=== PATIENT | male | born 1990 | race Caucasian/White ===

== ENCOUNTER 2018-09-19 13:00 | Emergency (ER) | payer OTHER ==
[~2018-09-19 13:00] MED LIST: CLIN300C99 PO; NAPR220C12 PO; TRUPT PO
--- NOTE | 2018-09-19 13:06 | ER Report ---
History and Physical Time Seen By MD: 13:06 HPI/ROS CHIEF COMPLAINT: Possible abscess HISTORY OF PRESENT ILLNESS: This is a 28-year-old male who presents to the emergency department for an abscess. Patient was seen and evaluated at urgent care, with a tried to I&D an abscessed area around the left inner gluteal fold near the perineum. No purulent drainage was removed from the I&D. Sent to the ER for concerns of fevers and chills, as well as the size of the induration and abscessed area. The patient states on Thursday he began to have some tenderness to the area, didn't sleep very well, had aches and chills and fevers at home. Has taken ibuprofen and Tylenol to help with the aches and chills in the discomfort. Patient states this happened a number of years ago in the same area, presentation was very similar, ultimately there was a large ingrown hair that they removed. No nausea or vomiting. No headaches. No chest pain or shortness of breath. REVIEW OF SYSTEMS: Constitutional: As above. Eyes: No discharge. ENT: No sore throat. Cardiovascular: No chest pain, no palpitations. Respiratory: No cough, no shortness of breath. Gastrointestinal: No abdominal pain, no vomiting. Genitourinary: No hematuria. Musculoskeletal: No back pain. Skin: As above. Neurological: No headache. Allergies: Coded Allergies: No Known Allergies (Verified Allergy, Unknown, 09/19/18) Home Meds Active Scripts Hydrocodone Bit/Acetaminophen (NORCO 5-325 TABLET) 1 Each Tablet, 1 EACH PO Q4- 6H PRN for PAIN, #12 TAB Prov:YARIEL ROBINS- 09/19/18 Sulfamethoxazole/Trimet 800-160 Mg Tab (BACTRIM DS TABLET) 1 Each Tablet, 1 TAB PO Q12H, #20 TAB 0 Refills Prov:YARIEL ROBINS-BC 09/19/18 Discontinued Reported Medications Naproxen Sodium (ALEVE) 220 Mg Capsule, 2 TAB PO BID PRN for PAIN, CAPSULE 01/17/15 Emtricitabine/Tenofovir (TRUVADA 200 MG-300 MG TABLET) 1 Each Tablet, 1 TAB PO QDAY 01/17/15 Discontinued Scripts Clindamycin Hcl (CLINDAMYCIN HCL) 300 Mg Capsule, 1 CAP PO Q6H, #40 CAPSULE 0 Re fills TAKE 1 CAPSULE EVERY SIX HOURS Prov:ASHOK LIN MD 01/17/15 Past Medical/Surgical History Patient has a past medical and surgical history of abscess to the perineum. Reviewed Nurses Notes: Yes Smoking Status: Never Smoker Constitutional Vital Sign - Last 24 Hours 09/19/18 09/19/18 09/19/18 09/19/18 13:00 13:04 13:05 14:00 Temp 101.4 Pulse 128 128 102 Resp 18 B/P (MAP) 141/95 141/95 (110) Pulse Ox 94 94 O2 Delivery Room Air 09/19/18 09/19/18 14:05 14:44 Temp 100.6 Pulse 99 B/P (MAP) 129/85 (100) 133/85 (101) Pulse Ox 92 Physical Exam General Appearance: The patient is alert, has no immediate need for airway protection and no signs of toxicity. Eyes: Pupils equal and round no pallor or injection. ENT, Mouth: Mucous membranes are moist. Respiratory: There are no retractions, lungs are clear to auscultation. Cardiovascular: Regular rate and rhythm. Gastrointestinal: Abdomen is soft and non tender, no masses, bowel sounds normal. Neurological: Alert and oriented 4. Moving all extremities. Following all commands. No focal neuro deficits. Skin: Erythema, induration and pain elicited with light palpation to the left medial gluteal fold in the perineum. Musculoskeletal: Neck is supple non tender. Extremities are nontender, nonswollen and have full range of motion. DIFFERENTIAL DIAGNOSIS: After history and physical exam differential diagnosis was considered for abscess. Medical Decision Making Data Points Result Diagram: 09/19/189 09/19/18 1339 Laboratory Hematology Test 09/19/18 13:39 Red Blood Count 5.33 M/uL (4.00-5.60) Mean Corpuscular Volume 88.2 fL (80.0-96.0) Mean Corpuscular Hemoglobin 29.6 pg (26.0-33.0) Mean Corpuscular Hemoglobin Concent 33.6 g/dL (32.0-36.0) Red Cell Distribution Width 14.0 % (11.5-14.5) Mean Platelet Volume 8.4 fL (7.2-11.1) Neutrophils (%) (Auto) 81.2 % (39.4-72.5) Lymphocytes (%) (Auto) 8.4 % (17.6-49.6) Monocytes (%) (Auto) 9.6 % (4.1-12.4) Eosinophils (%) (Auto) 0.1 % (0.4-6.7) Basophils (%) (Auto) 0.7 % (0.3-1.4) Nucleated RBC Relative Count (auto) 0.0 /100WBC Neutrophils # (Auto) 13.5 K/uL (2.0-7.4) Lymphocytes # (Auto) 1.4 K/uL (1.3-3.6) Monocytes # (Auto) 1.6 K/uL (0.3-1.0) Eosinophils # (Auto) 0.0 K/uL (0.0-0.5) Basophils # (Auto) 0.1 K/uL (0.0-0.1) Nucleated RBC Absolute Count (auto) 0.00 K/uL Sodium Level 139 mmol/L (137-145) Potassium Level 4.2 mmol/L (3.5-5.0) Chloride Level 106 mmol/L (98-107) Carbon Dioxide Level 21 mmol/L (22-30) Blood Urea Nitrogen 12 mg/dl (9-21) Creatinine 0.90 mg/dl (0.66-1.25) Glomerular Filtration Rate Calc > 60.0 Random Glucose 107 mg/dl (75-110) Calcium Level 9.5 mg/dl (8.4-10.2) Total Bilirubin 0.9 mg/dl (0.2-1.3) Aspartate Amino Transf (AST/SGOT) 19 U/L (0-35) Alanine Aminotransferase (ALT/SGPT) 53 U/L (0-56) Alkaline Phosphatase 68 U/L (0-126) Total Protein 8.0 g/dl (6.3-8.2) Albumin 4.4 g/dl (3.5-5.0) Chemistry Test 09/19/18 13:39 White Blood Count 16.6 k/uL (4.5-11.0) Red Blood Count 5.33 M/uL (4.00-5.60) Hemoglobin 15.8 g/dL (14.0-18.0) Hematocrit 47.0 % (42.0-52.0) Mean Corpuscular Volume 88.2 fL (80.0-96.0) Mean Corpuscular Hemoglobin 29.6 pg (26.0-33.0) Mean Corpuscular Hemoglobin Concent 33.6 g/dL (32.0-36.0) Red Cell Distribution Width 14.0 % (11.5-14.5) Platelet Count 321 K/uL (150-450) Mean Platelet Volume 8.4 fL (7.2-11.1) Neutrophils (%) (Auto) 81.2 % (39.4-72.5) Lymphocytes (%) (Auto) 8.4 % (17.6-49.6) Monocytes (%) (Auto) 9.6 % (4.1-12.4) Eosinophils (%) (Auto) 0.1 % (0.4-6.7) Basophils (%) (Auto) 0.7 % (0.3-1.4) Nucleated RBC Relative Count (auto) 0.0 /100WBC Neutrophils # (Auto) 13.5 K/uL (2.0-7.4) Lymphocytes # (Auto) 1.4 K/uL (1.3-3.6) Monocytes # (Auto) 1.6 K/uL (0.3-1.0) Eosinophils # (Auto) 0.0 K/uL (0.0-0.5) Basophils # (Auto) 0.1 K/uL (0.0-0.1) Nucleated RBC Absolute Count (auto) 0.00 K/uL Glomerular Filtration Rate Calc > 60.0 Calcium Level 9.5 mg/dl (8.4-10.2) Total Bilirubin 0.9 mg/dl (0.2-1.3) Aspartate Amino Transf (AST/SGOT) 19 U/L (0-35) Alanine Aminotransferase (ALT/SGPT) 53 U/L (0-56) Alkaline Phosphatase 68 U/L (0-126) Total Protein 8.0 g/dl (6.3-8.2) Albumin 4.4 g/dl (3.5-5.0) ED Course/Re-evaluation Clinical Indication for ER IV: Hydration, IV Access ED Course The patient was admitted to room. History and physical were obtained. Differential diagnoses were considered. An IV was started. CBC, CMP, 1 L normal saline bolus was given. CBC showing white count of 16.6. Blood culture was obtained. A specimen culture was collected and sent to the lab. The patient's name was I&D does not of below. Did get a very large amount of purulent Drainage from the wound, did breakup the loculations. Did have a very foul odor to it. The wound was packed as noted below. The patient was started on Bactrim. Patient also received 5 mg IM Rocephin at urgent care, I also gave the patient 1 g of IV Rocephin. The patient tolerated well. I did instruct the patient to return tomorrow for reevaluation. Patient expressed understanding and was discharged home. The patient was also given a prescription for hydrocodone. Instructed to apply a warm compress to the area, keep the wound clean and dry until he follows up tomorrow. Patient expressed understanding. He was discharged home. Procedure: Abscess drainage. The patient's abscess was located on the left medial gluteal fold near the perineum.. I obtained verbal consent from the patient to drain the abscess who was informed about the possibility of bleeding and pain. The abscess was incised with a scalpel and a large amount of purulent drainage was expressed. I irrigated the wound and placed some packing. The patient tolerated the procedure well. The procedure was performed by myself. Decision to Disposition Date: Sep 19, 2018 Decision to Disposition Time: 14:35 Depart Departure Latest Vital Signs Vital Signs Date Time Temp Pulse Resp B/P (MAP) Pulse Ox O2 Delivery O2 Flow Rate FiO2 09/19/18 14:44 100.6 99 133/85 (101) 92 09/19/18 13:04 18 Room Air Impression: Primary Impression: Perineal abscess Condition: Improved Disposition: HOME OR SELF-CARE New Scripts Hydrocodone Bit/Acetaminophen (NORCO 5-325 TABLET) 1 Each Tablet 1 EACH PO Q4-6H PRN for PAIN, #12 TAB Prov: YARIEL ROBINS- 09/19/18 Sulfamethoxazole/Trimet 800-160 Mg Tab (BACTRIM DS TABLET) 1 Each Tablet 1 TAB PO Q12H, #20 TAB 0 Refills Prov: YARIEL ROBINS 09/19/18 Patient Instructions: Abscess (ED), Abscess Incision and Drainage (DC) Additional Instructions: We were able to drain a substantial amount of pus from the abscess. Keep the area as clean and dry as possible until you return to the ED. Please return tomorrow afternoon for reevaluation, we may remove the drain and replace with another. Take the antibiotics as prescribed. Take 600-800mg Ibuprofen every 6-8 hours as needed. Take 500-1000mg Tylenol as needed, do not take Tylenol with [place]. Take [place] as directed for severe pain. Apply heat to the affected area. Drink plenty of water, Get plenty of rest. Return to the ED for any other concerns or worsening symptoms. YARIEL ROBINS [employer]ER-BC Sep 19, 2018 13:06
[2018-09-19] MEDS ORDERED: NS(*) 0.9% 1000 ML BAG 1,000 ML IV ONE (13:30)
[2018-09-19] MEDS ORDERED: KETOROLAC 30 MG/ML VIAL IVP ONE (13:30)
[2018-09-19] MEDS ORDERED: cefTRIAXone 1 GM VIAL IVP ONE (13:30)
[2018-09-19 13:50] LABS: PLATELET COUNT, AUTOMATED 321 K/uL (150-450)
[2018-09-19] MEDS ORDERED: SULF-198 PO (14:09)
[2018-09-19] MEDS ORDERED: HYDR-653 PO (14:09)
[2018-09-19 14:44] VITALS: BP 133/85
== END 2018-09-19 14:52 | disposition home or self-care (01) ==
LOC: ER 13:03
DX: L02.215 Cutaneous abscess of perineum (principal)
CPT/HCPCS: 10061; 85025; 87040; 87070; 96374; 96375; 99284; J0696; J1885; J7030; 82040; 82247; 82310; 82374; 82435; 82565; 82947; 84075; 84132; 84155; 84295; 84450; 84460; 84520; 87077; 87186

== ENCOUNTER 2018-09-20 11:45 | Emergency (ER) | payer OTHER ==
[~2018-09-20 11:45] MED LIST changes: +HYDR-653 PO; +SULF-198 PO
--- NOTE | 2018-09-20 12:26 | ER Report ---
History and Physical Time Seen By MD: 12:24 Hx. of Stated Complaint: follow up on cyst. HPI/ROS CHIEF COMPLAINT: Follow-up on abscess HISTORY OF PRESENT ILLNESS: This is a 28-year-old male who presents to the emergency department for reevaluation of an abscess. Patient was seen here yesterday for an I&D of an abscess to the perineum. Patient states he feels significantly better, he is able to sit down, and drive, able to sit at work. Patient denies aches or chills. No nausea or vomiting. No fevers. REVIEW OF SYSTEMS: Respiratory: No cough, no dyspnea. Cardiovascular: No chest pain, no palpitations. Gastrointestinal: No vomiting, no abdominal pain. Musculoskeletal: No back pain. Integumentary: As above. Allergies: Coded Allergies: No Known Allergies (Verified Allergy, Unknown, 09/20/18) Home Meds Active Scripts Hydrocodone Bit/Acetaminophen (NORCO 5-325 TABLET) 1 Each Tablet, 1 EACH PO Q4- 6H PRN for PAIN, #12 TAB Prov:YARIEL ROBINSP- 09/19/18 Sulfamethoxazole/Trimet 800-160 Mg Tab (BACTRIM DS TABLET) 1 Each Tablet, 1 TAB PO Q12H, #20 TAB 0 Refills Prov:YARIEL ROBINSP- 09/19/18 Discontinued Reported Medications Naproxen Sodium (ALEVE) 220 Mg Capsule, 2 TAB PO BID PRN for PAIN, CAPSULE 01/17/15 Emtricitabine/Tenofovir (TRUVADA 200 MG-300 MG TABLET) 1 Each Tablet, 1 TAB PO QDAY 01/17/15 Discontinued Scripts Clindamycin Hcl (CLINDAMYCIN HCL) 300 Mg Capsule, 1 CAP PO Q6H, #40 CAPSULE 0 Refills TAKE 1 CAPSULE EVERY SIX HOURS Prov:ASHOK LIN MD 01/17/15 Past Medical/Surgical History The patient has a past medical surgical history of abscess to the perineum. Reviewed Nurses Notes: Yes Smoking Status: Never Smoker Constitutional Vital Sign - Last 24 Hours 09/20/18 09/20/18 11:52 12:58 Temp 98.2 99.1 Pulse 78 89 Resp 20 13 B/P (MAP) 138/72 133/86 (102) Pulse Ox 92 95 O2 Delivery Room Air Physical Exam General Appearance: The patient is alert, has no immediate need for airway protection and no signs of toxicity. Eyes: Pupils equal and round no pallor or injection. ENT, Mouth: Mucous membranes are moist. Respiratory: There are no retractions, lungs are clear to auscultation. Cardiovascular: Regular rate and rhythm. Gastrointestinal: Abdomen is soft and non tender, no masses, bowel sounds normal. Neurological: Alert and oriented 4. Moving all extremities. Following all commands. No focal neuro deficits. Skin: Improved erythema, improved induration and improved pain with light palpation to the left medial gluteal fold in the perineum. Musculoskeletal: Neck is supple non tender. Extremities are nontender, nonswollen and have full range of motion. DIFFERENTIAL DIAGNOSIS: After history and physical exam differential diagnosis was considered for abscess. Medical Decision Making ED Course/Re-evaluation ED Course The patient was admitted to room. A history and physical were obtained. Differential diagnoses were considered. After examination of the patient the wick that was left in place last night was removed. Patient had significant improvement in erythema, cellulitis, pain. Continues to have some discharge, improved odor. Patient states feeling significantly better since the I&D yesterday. No repeat wick was placed. Patient was instructed to continue antibiotics. Now shower and sits baths. Patient was encouraged to not go to work for the next couple of days to ensure that the area does heal properly. Patient expressed understanding and was discharged home. Patient will follow-up with primary care provider as needed. Decision to Disposition Date: Sep 20, 2018 Decision to Disposition Time: 12:51 Depart Departure Latest Vital Signs Vital Signs Date Time Temp Pulse Resp B/P (MAP) Pulse Ox O2 Delivery O2 Flow Rate FiO2 09/20/18 12:58 99.1 89 13 133/86 (102) 95 09/20/18 11:52 Room Air Impression: Primary Impression: Perineal abscess Condition: Improved Disposition: HOME OR SELF-CARE Departure Forms: ER Transition Record, Medications Reconciliation, Off Work/ School Form, School or Work Release?: Work Number of days to be released: 3 Patient Portal Information Patient Instructions: Abscess (ED), Abscess Incision and Drainage (DC), Sitz Bath (DC) Additional Instructions: The abscessed area is significantly improved. You can begin showering now. I would recommend sitz bath's at least a couple times a day. Continue taking the antibiotics as prescribed. Take ibuprofen or Tylenol as needed for pain. Drink plenty of water. Get plenty of rest. Return to the emergency department for any other concerns or worsening symptoms. YARIEL ROBINS GRANULATOR-BC Sep 20, 2018 12:26
[2018-09-20 12:58] VITALS: BP 133/86
== END 2018-09-20 12:59 | disposition home or self-care (01) ==
LOC: ER 12:22
DX: L02.215 Cutaneous abscess of perineum (principal)
CPT/HCPCS: 99282